=== PATIENT | male | born 1975 | race Caucasian/White ===

== ENCOUNTER 2017-12-31 09:37 | Outpatient (CLI) | payer BC | END 2017-12-31 09:38 | disposition home or self-care (01) | LOC: EEG 09:37 | PROVIDERS: ATTEND Psychiatry & Neurology Neurology | DX: R42 Dizziness and giddiness (principal) | CPT/HCPCS: 95816 ==

== ENCOUNTER 2018-03-08 09:11 | Outpatient (CLI) | payer BC ==
--- NOTE | 2018-03-08 12:24 | CT ---
CT OF SINUSES PERFORMED WITHOUT CONTRAST ENHANCEMENT: History: Patient had sinus surgery in November. Later had stents removed and started bleeding again and h ad return for additional surgery. Now reporting some wetness from the left nostril and pain in left e ye. Technique: Axial images were performed and reconstructed images were performed at the thinnest slice level possible for assessment. Exam is still not optimal for subtle areas of bony dehiscence. FINDINGS: There are some areas of thinning along the sella turcica region. There is no obvious defect present b ut the bone in this region becomes very thin. There are also similar regions adjacent to the more ant erior margins of both frontal horns in the cribriform plate region. Both of these areas best seen on carinal image 99. It is difficult to exclude small areas of bony dehiscense but not obviously dehisce d. Post-operative changes with bilateral uncinectomy are noted, more of a Gary-eh type procedure. T here is mucosal disease seen within the sinuses, specifically, there is some left sided sphenoid air cell disease. Bilateral maxillary and ethmoid air cells changes. There are no fluid collections noted . IMPRESSION: 1. Post-operative changes of the sinuses and some mild piper sinusitis mucosal disease without evidence of air fluid levels. 2. Areas of bony thinning of the more anterior cribriform plate region and sella turcica without obvi ous bony dehiscense. If there is a strong clinical suspicious of bony dehiscense, then a repeat study after intrathecal myelographic contrast may be helpful. 3. Findings reviewed with Dr. Castillo who agrees. POS: [facility]
== END 2018-03-08 09:12 | disposition home or self-care (01) ==
LOC: TBSIIMAG 09:11
PROVIDERS: ATTEND Neurological Surgery
DX: J34.89 Other specified disorders of nose and nasal sinuses (principal); Z98.890 Other specified postprocedural states

== ENCOUNTER 2018-06-17 10:28 | Outpatient (CLI) | payer BC ==
--- NOTE | 2018-06-17 13:10 | CT ---
CT ORBITS WITH CONTRAST: HISTORY: Dizziness. Pain. TECHNIQUE: Contrast enhanced CT images of the orbits are obtained. FINDINGS: No evidence of intraconal or extraconal orbital abnormality is seen. The optic nerves, rectus muscle s, and periorbital fat are unremarkable. The orbits are unremarkable. No significant evidence of ab normalities or masses are seen. Mild bilateral maxillary sinus mucosal thickening is seen. The frontal sinuses are well aerated. Th e sphenoid sinuses are well aerated. Minimal bilateral ethmoid sinus mucosal thickening is seen. The middle ear and mastoid air cells are also well aerated. IMPRESSION: Minimal ethmoid and maxillary sinus mucosal thickening. The patient has had previous bilateral maxil uri sinus surgical decompressions. No significant evidence of orbital abnormalities seen. POS: [facility]
== END 2018-06-17 10:29 | disposition home or self-care (01) ==
LOC: SCSCT 10:28
PROVIDERS: ATTEND Internal Medicine Infectious Disease
DX: T81.9XXA Unspecified complication of procedure, initial encounter (principal); H53.2 Diplopia; J34.89 Other specified disorders of nose and nasal sinuses
CPT/HCPCS: 70481